=== PATIENT | female | born 1990 | race Caucasian/White ===

== ENCOUNTER 2020-12-04 20:26 | Inpatient (IN) ==
[2020-12-04] MEDS ORDERED: CITRIC ACID/SODIUM CITRATE 30 ML UDCUP PO ONE (21:21)
[2020-12-04] MEDS ORDERED: ceFAZolin 2,000 MG in PREMIX 1 EACH IV ONE (21:21)
[2020-12-04] MEDS ORDERED: FAMOTIDINE 20 MG/2 ML VIAL IV ONE ×2 (21:21→21:24)
[2020-12-04] MEDS ORDERED: LACTATED RINGERS 1,000 ML IV ONE (21:23)
[2020-12-04] MEDS ORDERED: CITRIC ACID/SODIUM CITRATE 30 ML UDCUP ONE (21:24)
[2020-12-04 21:27] LABS: Bilirubin,Urine Negative (Negative); Blood, Urine Moderate mg/dL (Negative); Glucose,Urine (UA) Negative (Negative); Hyaline Casts,Urine 7 /LPF (0-3); Ketones,Urine Negative (Negative); Mucus,Urine Occasional /LPF (Occasional); Nitrite,Urine Negative (Negative); Protein,Urine >=500 MG/DL; RBC,Urine 48 /HPF (0-4); Squamous Epithelial Cell,Urine Occasional /HPF (0-10); Urine Appearance CLEAR (Clear); Urine Color Yellow (Yellow); Urine Specific Gravity 1.019 (1.001-1.035); Urine Urobilinogen < 2.0 EU/DL (0.2-1.0); WBC,Urine 2 /HPF (0-6)
[2020-12-04] MEDS: hydrALAZINE 20 MG/1 ML VIAL IV PRN ×2 (21:28→23:18)
[2020-12-04] MEDS ORDERED: ROCURONIUM 50 MG/5 ML VIAL IV ONE (21:29)
[2020-12-04] MEDS ORDERED: propofoL 200 MG/20 ML VIAL IV ONE (21:29)
[2020-12-04] MEDS ORDERED: SUCCINYLCHOLINE 200 MG/10 ML VIAL ONE (21:29)
[2020-12-04] MEDS ORDERED: LIDOCAINE 2% 5 ML VIAL ONE (21:29)
[2020-12-04] MEDS ORDERED: miSOPROStoL 200 MCG TABLET ONE (21:30)
[2020-12-04] MEDS ORDERED: TRANEXAMIC ACID 1,000 MG/10 ML VIAL ONE (21:30)
[2020-12-04] MEDS ORDERED: OXYTOCIN/LR 20 UNIT/1,000 ML BAG IV ONE ×2 (21:30→22:53)
[2020-12-04] MEDS ORDERED: LACTATED RINGERS 1,000 ML IV SCH (21:30)
[2020-12-04] MEDS ORDERED: SODIUM CHLORIDE 0.9% 100 ML IV ONE (21:31)
[2020-12-04] MEDS ORDERED: CARBOPROST TROMETHAMINE 250 MCG/ML AMP IM ONE ×2 (21:31→21:53)
[2020-12-04] MEDS ORDERED: SUFentanil 50 MCG/ML AMP ONE (21:33)
[2020-12-04 21:39] LABS: Basophils # 0.1 10*3/uL (0.0-0.2); Basophils % 0.7 % (0.0-0.8); Eosinophils # 0.2 10*3/uL (0.0-0.87); Eosinophils % 1.7 % (0.00-10.9); Hematocrit 37.6 VOL% (35.7-47.0); Hemoglobin 12.3 GM/DL (12.0-16.0); Immature Granulocytes % 1.3 %; Immature Granulocytes Absolute 0.14 #; Lymphocytes # 1.9 10*3/uL (1.4-4.0); Lymphocytes % 18.1 % (21.3-54.2); Mean Corpuscular HGB Conc 32.7 GM/DL (32-36); Mean Corpuscular Volume 91.9 FL (87-102); Mean Platelet Volume 12.7 FL (9.6-12.0); Monocytes % 11.2 % (1.7-12.7); Platelet Count 176 T/CUMM (130-400); Red Blood Count 4.09 MC/CUMM (3.8-5.5); Red Cell Distribution Width 13.3 % (9.3-17.3); White Blood Count 10.5 T/CUMM (4-12)
[2020-12-04] MEDS ORDERED: MAGNESIUM SULF RIDER 100 ML IV ONE (21:48)
[2020-12-04 21:57] LABS: INR 0.9; PT Patient Result 9.4 SECS (9.8-11.9); Partial Thromboplastin Time 25.1 SECS (23.9-33.8)
[2020-12-04] MEDS ORDERED: SEVOFLURANE 1 UNIT/15 MINUTE INH ONE (21:57)
[2020-12-04] MEDS ORDERED: MAGNESIUM SULF DRIP 40 GM/1,000 ML ML IV SCH (22:00)
[2020-12-04 22:11] LABS: Cord Venous Blood HCO3 26.3 MMOL/L; Cord Venous Blood PCO2 51.3 MMHG
[2020-12-04] MEDS ORDERED: ACETAMINOPHEN 1,000 MG/100 ML VIAL IV ONE (22:11)
[2020-12-04 22:15] LABS: Bilirubin,Urine Negative (Negative); Blood, Urine Small mg/dL (Negative); Glucose,Urine (UA) Negative (Negative); Ketones,Urine Negative (Negative); Mucus,Urine Occasional /LPF (Occasional); Nitrite,Urine Negative (Negative); Protein,Urine >=500 MG/DL; Squamous Epithelial Cell,Urine Occasional /HPF (0-10); Urine Appearance Slightly Hazy (Clear); Urine Color Yellow (Yellow); Urine Specific Gravity 1.017 (1.001-1.035); Urine Urobilinogen < 2.0 EU/DL (0.2-1.0); WBC,Urine <1 /HPF (0-6)
[2020-12-04] MEDS ORDERED: GLYCOPYRROLATE 0.4 MG/2 ML VIAL ONE (22:21)
[2020-12-04] MEDS ORDERED: NEOSTIGMINE 10 MG/10 ML VIAL ONE (22:21)
[2020-12-04] MEDS ORDERED: ACETAMINOPHEN 325 MG TABLET PO PRN (22:53)
[2020-12-04] MEDS ORDERED: RHO(D) IMMUNE GLOBULIN 300 MCG SYRINGE IM ONE (22:53)
[2020-12-04] MEDS ORDERED: DIPH/TET/ACEL PERT BOOSTER VACCINE 0.5 ML VIAL IM ONE (22:53)
[2020-12-04] MEDS ORDERED: WITCH HAZEL PADS 100/JAR TOP PRN (22:53)
[2020-12-04] MEDS ORDERED: BENZOCAINE 20%/MENTHOL 0.5% SPRAY 56 GM CAN TOP PRN (22:53)
[2020-12-04] MEDS ORDERED: BISACODYL 10 MG SUPP RECTAL PRN (22:53)
[2020-12-04] MEDS ORDERED: HYDROCORTISONE 2.5% RECTAL CREAM 30 GM TUBE TOP PRN (22:53)
[2020-12-04] MEDS ORDERED: oxyCODONE/ACETAMINOPHEN 5-325 MG TABLET PO PRN ×2 (22:53)
[2020-12-04] MEDS ORDERED: MEASLES/MUMPS/RUBELLA VACCINE 0.5 ML VIAL SUBCUT ONE (22:53)
[2020-12-04] MEDS ORDERED: LANOLIN 50% CREAM 0.3 OZ TUBE TOP PRN (22:53)
[2020-12-04] MEDS ORDERED: ONDANSETRON 4 MG/2 ML VIAL IV PRN (22:53)
[2020-12-04] MEDS ORDERED: HYDROmorphone 2 MG/1 ML VIAL IV PRN ×2 (22:57→22:58)
[2020-12-04 23:22] LABS: Alanine Aminotransferase 17 U/L (13-56); Albumin 2.2 G/DL (3.4-5.0); Alkaline Phosphatase 234 U/L (45-117); Aspartate Amino Transferase 18 U/L (0-37); Bilirubin,Direct < 0.100 MG/DL (0.0-0.20); Bilirubin,Total < 0.39 MG/DL (0.2-1.0); Blood Urea Nitrogen 18 MG/DL (7-18); Calcium 8.5 MG/DL (8.5-10.1); Carbon Dioxide 22 MMOL/L (21-32); Estimated Glom Filtration Rate 105 ML/MIN; Glucose 71 MG/DL (74-106); Osmolality,Calculated 276.5 MOS/KG (273-304); Potassium 4.3 MMOL/L (3.5-5.1); Sodium 139 MMOL/L (136-145); Total Protein 6.9 G/DL (5.0-7.5); Uric Acid 7.7 MG/DL (2.6-6.0)
[2020-12-04] MEDS: LABETALOL 200 MG TABLET PO SCH (23:25)
[2020-12-04] MEDS ORDERED: HYDROmorphone 2 MG/1 ML VIAL IV ONE (23:43)
[2020-12-05] MEDS ORDERED: ACETAMINOPHEN INJ 1,000 MG in PREMIX 1 EACH IV SCH (04:00)
[2020-12-05] MEDS: ACETAMINOPHEN 500 MG TABLET PO SCH ×5 (04:45→21:59)
[2020-12-05 07:31] LABS: Basophils % 0.1 % (0.0-0.8); Hemoglobin 10.8 GM/DL (12.0-16.0); Immature Granulocytes % 1.4 %; Immature Granulocytes Absolute 0.24 #; Lymphocytes # 0.9 10*3/uL (1.4-4.0); Lymphocytes % 5.3 % (21.3-54.2); Mean Corpuscular HGB Conc 32.7 GM/DL (32-36); Mean Corpuscular Volume 91.7 FL (87-102); Monocytes % 3.3 % (1.7-12.7); Neutrophils % 89.9 % (38.7-73.9); Platelet Count 164 T/CUMM (130-400); Red Cell Distribution Width 13.4 % (9.3-17.3); White Blood Count 17.1 T/CUMM (4-12)
[2020-12-05] MEDS: LABETALOL 200 MG TABLET PO SCH ×2 (09:34→18:04)
[2020-12-05] MEDS: IBUPROFEN 800 MG TABLET PO PRN (16:55)
[2020-12-05] MEDS: DOCUSATE SODIUM 100 MG CAPSULE PO SCH (20:54)
[2020-12-05] MEDS ORDERED: miSOPROStoL 200 MCG TABLET RECTAL ONE (21:50)
[2020-12-06] MEDS: LABETALOL 100 MG TABLET PO SCH ×4 (01:51→16:25)
[2020-12-06] MEDS: ACETAMINOPHEN 500 MG TABLET PO SCH (04:09)
[2020-12-06] MEDS: DOCUSATE SODIUM 100 MG CAPSULE PO SCH ×2 (08:12→20:08)
[2020-12-06] MEDS: MAGNESIUM HYDROXIDE SUSP 30 ML UDCUP PO PRN ×2 (11:30→20:08)
[2020-12-06] MEDS: IBUPROFEN 800 MG TABLET PO PRN (20:07)
[2020-12-06] MEDS ORDERED: SIMETHICONE CHEW 80 MG TABLET PO PRN (20:48)
[2020-12-06] MEDS: ACETAMINOPHEN 500 MG TABLET PO PRN (21:19)
[2020-12-07] MEDS: LABETALOL 100 MG TABLET PO SCH ×2 (00:02→07:55)
[2020-12-07] MEDS: IBUPROFEN 800 MG TABLET PO PRN (03:36)
[2020-12-07] MEDS: ACETAMINOPHEN 500 MG TABLET PO PRN (03:37)
[2020-12-07] MEDS: DOCUSATE SODIUM 100 MG CAPSULE PO SCH (07:55)
[2020-12-07 08:40] VITALS: BP 150/95
== END 2020-12-07 12:40 | disposition home or self-care (01) | DRG 787 ==
LOC: N.LDOUT 20:26 → N.LD 20:28 → N.OB 12-05 14:20
PROVIDERS: ADMIT Specialist; ATTEND Specialist
PROC: LDCSECT (ICD-10-PCS; 2020-12-04 21:30)

== ENCOUNTER 2022-03-05 06:24 | Inpatient (IN) ==
[2022-03-05] MEDS ORDERED: CARBOPROST TROMETHAMINE 250 MCG/ML AMP IM PRN (06:53)
[2022-03-05] MEDS ORDERED: CITRIC ACID/SODIUM CITRATE 30 ML UDCUP PO ONE (06:53)
[2022-03-05] MEDS ORDERED: ceFAZolin 3,000 MG in SYRINGE 1 EACH IV ONE (06:53)
[2022-03-05] MEDS ORDERED: TRANEXAMIC ACID 1,000 MG in SODIUM CHLORIDE 0.9% 100 ML IV PRN (06:53)
[2022-03-05] MEDS ORDERED: FAMOTIDINE 20 MG/2 ML VIAL IV ONE (06:53)
[2022-03-05] MEDS ORDERED: miSOPROStoL 200 MCG TABLET RECTAL PRN (06:53)
[2022-03-05] MEDS ORDERED: METHYLERGONOVINE 0.2 MG/1 ML AMP IM PRN (06:53)
[2022-03-05] MEDS ORDERED: OXYTOCIN/LR 20 UNIT/1,000 ML BAG IV ONE ×4 (06:53→14:16)
[2022-03-05 07:41] LABS: Basophils % 0.4 % (0.0-0.8); Eosinophils # 0.1 10*3/uL (0.0-0.87); Hematocrit 34.2 VOL% (35.7-47.0); Immature Granulocytes % 1.7 %; Immature Granulocytes Absolute 0.14 #; Lymphocytes # 1.4 10*3/uL (1.4-4.0); Lymphocytes % 16.5 % (21.3-54.2); Mean Corpuscular HGB Conc 32.2 GM/DL (32-36); Mean Corpuscular Volume 90.5 FL (87-102); Mean Platelet Volume 12.7 FL (9.6-12.0); Monocytes # 0.8 10*3/uL (0.11-0.8); Monocytes % 9.3 % (1.7-12.7); Neutrophils % 71.1 % (38.7-73.9); Platelet Count 156 T/CUMM (130-400); Red Blood Count 3.78 MC/CUMM (3.8-5.5); Red Cell Distribution Width 13.9 % (9.3-17.3); White Blood Count 8.4 T/CUMM (4-12)
[2022-03-05] MEDS: LACTATED RINGERS 1,000 ML IV SCH ×2 (07:45→10:13)
[2022-03-05 07:58] LABS: INR 0.9; PT Patient Result 9.6 SECS (10.5-12.0)
[2022-03-05 07:59] LABS: Alanine Aminotransferase 19 U/L (13-56); Albumin 2.8 G/DL (3.4-5.0); Alkaline Phosphatase 130 U/L (45-117); Aspartate Amino Transferase 15 U/L (0-37); Bilirubin,Total < 0.39 MG/DL (0.20-1.00); Blood Urea Nitrogen 15 MG/DL (7-18); Carbon Dioxide 20 MMOL/L (21-32); Chloride 107 MMOL/L (98-107); Glucose 85 MG/DL (74-106); Osmolality,Calculated 267.2 MOS/KG (273-304); Potassium 4.1 MMOL/L (3.5-5.1); Sodium 134 MMOL/L (136-145); Total Protein 7.6 G/DL (6.4-8.2)
[2022-03-05] MEDS ORDERED: ceFAZolin 2,000 MG/50 ML DUPLEX IV ONE (08:20)
[2022-03-05] MEDS ORDERED: SODIUM CHLORIDE 0.9% 0 ML IV ONE (09:34)
[2022-03-05] MEDS ORDERED: TRANEXAMIC ACID 1,000 MG/10 ML VIAL ONE (09:34)
[2022-03-05] MEDS ORDERED: miSOPROStoL 200 MCG TABLET ONE (09:34)
[2022-03-05] MEDS ORDERED: CARBOPROST TROMETHAMINE 250 MCG/ML AMP IM ONE (09:35)
[2022-03-05] MEDS ORDERED: BUPIVACAINE SPINAL 0.75% 2 ML AMP SPINAL ONE (10:48)
[2022-03-05] MEDS ORDERED: buprenorphine HCL 0.3 MG/ML VIAL ONE (10:48)
[2022-03-05] MEDS ORDERED: OXYTOCIN 10 UNIT/ML VIAL ONE (11:26)
[2022-03-05 11:39] LABS: Cord Arterial Blood HCO3 22.2 MMOL/L
[2022-03-05 11:42] LABS: Cord Venous Blood HCO3 23.3 MMOL/L; Cord Venous Blood PCO2 47.5 MMHG; Cord Venous Blood PO2 31.2
[2022-03-05 11:47] LABS: RBC,Urine 1 /HPF (0-4)
[2022-03-05 11:48] LABS: Bilirubin,Urine Negative (Negative); Blood, Urine Negative (Negative); Glucose,Urine (UA) Negative (Negative); Ketones,Urine Negative (Negative); Nitrite,Urine Negative (Negative); Protein,Urine Negative (Negative); Urine Appearance Clear (Clear); Urine Color Straw (Yellow); Urine Specific Gravity 1.015 (1.001-1.035); Urine Urobilinogen 0.2 eU/dL (<2.0)
[2022-03-05] MEDS ORDERED: ONDANSETRON 4 MG/2 ML VIAL ONE (11:48)
[2022-03-05] MEDS ORDERED: KETOROLAC 30 MG/1 ML VIAL ONE (11:48)
[2022-03-05] MEDS ORDERED: PHENYLEPHRINE 1 MG/10 ML SYRINGE IV ONE (11:48)
[2022-03-05] MEDS ORDERED: HYDROmorphone 1 MG/1 ML SYRINGE IV PRN (12:18)
[2022-03-05] MEDS ORDERED: hydrOXYzine HCL 25 MG/1 ML VIAL IM PRN (12:18)
[2022-03-05] MEDS ORDERED: diphenhydrAMINE 50 MG/1 ML VIAL IV PRN (12:18)
[2022-03-05] MEDS ORDERED: ONDANSETRON 4 MG/2 ML VIAL IV PRN ×2 (12:18→14:16)
[2022-03-05] MEDS ORDERED: MEASLES/MUMPS/RUBELLA VACCINE 0.5 ML VIAL SUBCUT ONE (14:16)
[2022-03-05] MEDS ORDERED: DIPH/TET/ACEL PERT BOOSTER VACCINE 0.5 ML VIAL IM ONE (14:16)
[2022-03-05] MEDS ORDERED: HYDROCORTISONE 2.5% RECTAL CREAM 30 GM TUBE TOP PRN (14:16)
[2022-03-05] MEDS ORDERED: BISACODYL 10 MG SUPP RECTAL PRN (14:16)
[2022-03-05] MEDS ORDERED: oxyCODONE/ACETAMINOPHEN 5-325 MG TABLET PO PRN ×2 (14:16)
[2022-03-05] MEDS ORDERED: RHO(D) IMMUNE GLOBULIN 300 MCG SYRINGE IM ONE (14:16)
[2022-03-05] MEDS ORDERED: BENZOCAINE 20%/MENTHOL 0.5% SPRAY 56 GM CAN TOP PRN (14:16)
[2022-03-05] MEDS ORDERED: WITCH HAZEL PADS 100/JAR TOP PRN (14:16)
[2022-03-05] MEDS: LABETALOL 100 MG TABLET PO SCH ×2 (14:16→21:59)
[2022-03-05] MEDS ORDERED: LANOLIN 50% CREAM 0.3 OZ TUBE TOP PRN (14:16)
[2022-03-05] MEDS: KETOROLAC 30 MG/1 ML VIAL IV SCH (17:57)
[2022-03-05] MEDS: ACETAMINOPHEN 500 MG TABLET PO SCH (21:00)
[2022-03-05] MEDS: DOCUSATE SODIUM 100 MG CAPSULE PO SCH (22:01)
[2022-03-06] MEDS: KETOROLAC 30 MG/1 ML VIAL IV SCH ×2 (00:34→06:20)
[2022-03-06] MEDS: LABETALOL 100 MG TABLET PO SCH (02:04)
[2022-03-06] MEDS: ACETAMINOPHEN 500 MG TABLET PO SCH (03:35)
[2022-03-06 05:46] LABS: Basophils % 0.2 % (0.0-0.8); Eosinophils # 0.1 10*3/uL (0.0-0.87); Eosinophils % 0.6 % (0.00-10.9); Hemoglobin 9.5 GM/DL (12.0-16.0); Immature Granulocytes % 0.5 %; Immature Granulocytes Absolute 0.04 #; Lymphocytes % 12.1 % (21.3-54.2); Mean Corpuscular HGB Conc 32.8 GM/DL (32-36); Mean Corpuscular Volume 89.5 FL (87-102); Mean Platelet Volume 11.8 FL (9.6-12.0); Monocytes # 0.7 10*3/uL (0.11-0.8); Neutrophils % 78.6 % (38.7-73.9); Platelet Count 126 T/CUMM (130-400); Red Blood Count 3.24 MC/CUMM (3.8-5.5); Red Cell Distribution Width 13.7 % (9.3-17.3); White Blood Count 8.4 T/CUMM (4-12)
[2022-03-06] MEDS: DOCUSATE SODIUM 100 MG CAPSULE PO SCH ×2 (09:20→23:00)
[2022-03-06] MEDS ORDERED: RHO(D) IMMUNE GLOBULIN 300 MCG SYRINGE IM ONE (12:09)
[2022-03-06] MEDS: IBUPROFEN 800 MG TABLET PO PRN ×2 (14:20→20:50)
[2022-03-06] MEDS: ACETAMINOPHEN 325 MG TABLET PO PRN ×2 (16:21→23:57)
[2022-03-06] MEDS ORDERED: MAGNESIUM HYDROXIDE SUSP 30 ML UDCUP PO PRN (17:48)
[2022-03-06] MEDS ORDERED: SIMETHICONE CHEW 80 MG TABLET PO PRN (17:49)
[2022-03-07] MEDS: LABETALOL 100 MG TABLET PO SCH (00:28)
[2022-03-07] MEDS: IBUPROFEN 800 MG TABLET PO PRN ×2 (03:24→10:15)
[2022-03-07 07:23] VITALS: BP 124/66
[2022-03-07] MEDS: DOCUSATE SODIUM 100 MG CAPSULE PO SCH (09:27)
== END 2022-03-07 11:35 | disposition home or self-care (01) | DRG 788 ==
LOC: N.LD 06:24 → N.OB 15:19
PROVIDERS: ADMIT Specialist; ATTEND Specialist
PROC: LDCSECT (ICD-10-PCS; 2022-03-05 11:15)